=== PATIENT | male | born 1945 | race Caucasian/White ===

== ENCOUNTER 2020-06-01 08:40 | Emergency (ER) | payer MEDICARE, SELFPAY ==
[2020-06-01] VITALS (13 sets, daily range): BP systolic 117–194; BP diastolic 72–108; PULSE 68–91; RESP 16–18; TEMP 36.6; O2SAT 98–100
--- NOTE | ~2020-06-01 | XR_ITS ---
EXAMINATION: XR ribs LT 2V w CXR 2V DATE: 06/01/2020 09:46 INDICATION: Anterior left rib pain post fall TECHNIQUE: PA and lateral views of the chest and 3 views of the left ribs were obtained. COMPARISON: Chest radiograph dated 02/22/18 FINDINGS: Old healed fracture at the anteriormost left 10th rib. No other rib fractures identified. Mild biapic al pleural-parenchymal scarring. Linear discoid atelectasis/scarring at the right lung base. Blunting at the posterior sulcus of one of the lungs on the lateral projection consistent with tiny pleural e ffusion. Subtle approximate 1.5 cm subpleural nodular opacity at the anterior mid to lower lungs on t he lateral projection. No pulmonary edema or pneumothorax. Cardiomediastinal silhouette is normal. Mi ld thoracic and moderate to severe lumbar spondylosis. 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 IMPRESSION: 1. Tiny pleural effusion at the posterior sulci of one of the lungs on the lateral projection, more l ikely on the right. No acute rib fractures identified. 2. Indeterminate 1.5 cm indeterminate nodular opacity at the anterior mid to lower lung zones on the lateral projection. Recommend CT for further evaluation. Reviewed, dictated and finalized at location A. INUOUS MINER OPERATOR IMPRESSION: 1. Tiny pleural effusion at the posterior sulci of one of the lungs on the late ral projection, more likely on the right. No acute rib fractures identified. 2. Indeterminate 1.5 cm indeterminate nodular opacity at the anterior mid to lo wer lung zones on the lateral projection. Recommend CT for further evaluation.
--- NOTE | 2020-06-01 09:20 | ED.FALL ---
HPI - Fall General Chief Complaint: Wound/Laceration <DIA Chen Last Filed: 06/01/20 10:36> Stated Complaint: Fall, Left Side Rib Pain <DIA Chen Last Filed: 06/01/20 10:36> Time Seen by Provider: 06/01/20 09:11 <DIA Chen Last Filed: 06/01/20 10:36> Source: patient <DIA Chen Last Filed: 06/01/20 10:36> Mode of arrival: ambulatory <DIA Chen Last Filed: 06/01/20 10:36> Limitations: no limitations <DIA Chen Last Filed: 06/01/20 10:36> History of Present Illness HPI Narrative: This is a 75 year old male that presents to the ER for left sided rib pain x 5 days. Reports he tripped and fell forward while outside. Reports he landed on a log. Reports since he has has left sided rib pain. Worse with movement and relieved with rest. Denies prodromal symptoms, hitting his head, loss of consciousness, shortness of breath, weakness, or numbness. <DIA Chen Last Filed: 06/01/20 10:36> Related Data Home Medications: Home Medications Medication Instructions Recorded Confirmed apixaban 5 mg tablet 5 mg PO BID 09/16/19 09/25/19 multivit,Ca,min-iron 8 mg-folic tablet PO 09/16/19 09/25/19 acid 200 mcg-lycopene 600 mcg tablet pravastatin 20 mg tablet 20 mg PO DAILY 09/16/19 09/25/19 <DIA Chen Last Filed: 06/01/20 10:36> Allergies/Adverse Reactions: Allergies Allergy/AdvReac Type Severity Reaction Status Date / Time No Known Allergies Allergy Unverified 09/25/19 09:18 <DIA Chen Last Filed: 06/01/20 10:36> Review of Systems Review of Systems: Narrative: CONSTITUTIONAL: Denies fever EYES: Denies visual changes CARDIOVASCULAR: Reports rib pain RESPIRATORY: Denies cough or dyspnea. NEUROLOGIC: Denies headache, numbness, or weakness. <Mikayla Carrizales PA-C - Last Filed: 06/01/20 10:36> All systems reviewed & are unremarkable except as noted in HPI and below <Mikayla Carrizales PA-C - Last Filed: 06/01/20 10:36> PMFSH Past Medical History Medical History: Medical History (Updated 06/01/20 @ 10:34 by Mikayla Carrizales PA-C) Essential hypertension History of stroke with residual deficit Mixed hyperlipidemia <Mikayla Carrizales PA-C - Last Filed: 06/01/20 10:36> Family History Family History: Family History (Updated 12/06/18 @ 15:37 by DOCTOR UNKNOWN) Father Family history of malignant neoplasm Family history of lymphoma Mother Family history of heart disease in male family member before age 55 Family history of cardiovascular disease Sibling Carcinoma of colon Family history of primary malignant neoplasm of liver Other Family history of arthritis <Mikayla Carrizales PA-C - Last Filed: 06/01/20 10:36> Social History Social History: Social History (Updated 09/25/19 @ 09:20 by Mis Dougherty) Smoking packs per day: 0.5 Smoking cigarettes per day: 10.0 Years smoked: 4 Smoking pack-years: 2.00 Smoking status: Former smoker Tobacco type: cigarettes Second hand tobacco smoke exposure: No Smoking end date: 07/30/74 Alcohol intake: never Substance use: never Substance use type: does not use Gender identity (if verbalized by the patient): Male <Mikayla Carrizales PA-C - Last Filed: 06/01/20 10:36> Exam Narrative: Exam Narrative: GENERAL: Well-appearing, well-nourished, and in no acute distress. HEAD: Normocephalic, atraumatic. EYES: PERRLA and EOMI. ENT: Nares clear, no rhinorrhea or epistaxis. Mucous membranes moist. Oropharynx without tonsillar hypertrophy exudate or other lesions. Bilateral TMs pearly rachel non-bulging NECK: Supple. No adenopathy or masses. No midline cervical spine tenderness CHEST: Clear to auscultation. No respiratory distress. No wheezes rales or rhonchi. Tender to palpation of left, lower anterior chest wall HEART: Regular rate and rhythm. No murmur heard. Nor
--- NOTE | 2020-06-01 10:25 | PC.NURSE ---
SERGIO STEPHEN INFORMED THAT RESULTS ARE BACK ON PT, STATES SHE WILL BE LETTING HIM GO HOME, AWAITING D/C PAPERWORK
== END 2020-06-01 10:55 | disposition home or self-care (01) ==
PROVIDERS: Emergency Provider General Practice; PCP Family Medicine
DX: S20.212A Contusion of left front wall of thorax, initial encounter (principal); R91.1 Solitary pulmonary nodule; I69.90 Unspecified sequelae of unspecified cerebrovascular disease; I10 Essential (primary) hypertension; E78.2 Mixed hyperlipidemia; Z87.891 Personal history of nicotine dependence; W01.198A Fall on same level from slipping, tripping and stumbling with subsequent striking against other object, initial encounter
CPT/HCPCS: 71046; 71100; 99283

== ENCOUNTER 2024-08-31 10:29 | Emergency (ER) | payer MEDICARE, SELFPAY ==
--- OUTSIDE RECORDS SUMMARY | 2024-08-31 10:32 | XMS_ITS | Encounter Summary ---
Author Organization [facility] Facility Care Team Providers Care Process Safety Manager Name Role Phone Keven Arias MD Primary Care Provider [phone] Jerry Alexandre MD Primary Care Provider Encounter Details Date Type Department Care Team (Latest Contact Info) Description 09/06/2017 Orders Only [facility] CLINCONV ProviderLai MD [address] [place] [id number] Social History Tobacco Use Types Packs/Day Years Used Date Smoking Tobacco: Never Assessed Sex and Gender Information Value Date Recorded Sex Assigned at Not on file Legal Sex Male 3:00 AM CASINO SURVEILLANCE OFFICER Gender Identity Not on file Sexual Orientation Not on file documented as of this encounter Plan of Treatment Not on file documented as of this encounter Procedures Procedure Name Priority Date/Time Associated Diagnosis Comments SCAN - LABS 09/10/2017 12:00 AM CASINO SURVEILLANCE OFFICER SCAN - LABS 09/10/2017 12:00 AM CASINO SURVEILLANCE OFFICER documented in this encounter Results * SCAN - LABS (09/10/2017 12:00 AM CASINO SURVEILLANCE OFFICER) Narrative 09/10/2017 12:00 AM CASINO SURVEILLANCE OFFICER Ordered by an unspecified provider. Historical Provider Final Res ult * SCAN - LABS (09/10/2017 12:00 AM CASINO SURVEILLANCE OFFICER) Narrative 09/10/2017 12:00 AM CASINO SURVEILLANCE OFFICER Ordered by an unspecified provider. Historical Provider Final Res ult documented in this encounter Visit Diagnoses Not on filedocumented in this encounter Care Teams Process Safety Manager Relationship Specialty Start Date End Date Keven Arias MD PCP - General Family Medicine 10/19/18 11/23/20 Jerry Alexandre MD [address] [place] [phone] PCP - General Family Medicine 11/24/20 documented as of this encounter
--- OUTSIDE RECORDS SUMMARY | 2024-08-31 10:32 | XMS_ITS | Patient Health Summary ---
Author Organization [facility] Address [address] [facility] [place] [address] Care Team Providers Care Slot Ambassador Name Role Phone Donovan Mason MD Primary Care Provider [phone] Note from [facility],non-owned Affiliates and Associated Physician Practices is amultiple site organization consisting of ambulatory clinics and hospital sitesin [place], [place], [place] and [place]. This disclosure is being madepursuant to the Care Everywhere program and may not contain all information available regarding this patient. Last updated 18.[facility] Social History Tobacco Use Types Packs/Day Years Used Date Smoking Tobacco: Never Assessed Sex and Gender Information Value Date Recorded Sex Assigned at Not on file Gender Identity Not on file Sexual Orientation Not on file Procedures * DERMATOPATHOLOGY(Performed 02/18/2020) * DERMATOPATHOLOGY(Performed 07/08/2014) * DERMATOPATHOLOGY(Performed 12/17/2013) * DERMATOPATHOLOGY(Performed 11/25/2013) Results * DERMATOPATHOLOGY (02/18/2020 12:00 AM CDT) Only the most recent of4 resultswithin the time period is included. Case Report Dermatopathology Report ? Case: [id number] ? Authorizing Provider: ??Idania Cervantes MD ? Collected: ? 02/18/2020 12:00 AM ? Ordering Location: ? [facility] ?Received: ?02/19/2020 12:19 PM ? Pathologist: ? Ayleen Lopez MD ? Specimen: ?Skin, right zygoma ? 0 11:34 AM CDT DERMATOPATHOLOGY LABORATORY Final Diagnosis Specimen A. SKIN, right zygoma: ACTINIC KERATOSIS (L57.0) (see microscopic description) 0 11:34 AM T DERMATOPATHOLOGY LABORATORY Clinical History R/O BCC, AK, irregular border, irregular color, irritated. 0 11:34 AM CDT DERMATOPATHOLOGY LABORATORY Gross Description Specimen A: Received is one formalin filled container labeled with the patient's name and designated right zygoma. The specimen consists of a shave measuring [id number]. Jar 0. 0 11:34 AM CDT DERMATOPATHOLOGY LABORATORY Microscopic Description Specimen A. SKIN, right zygoma: There is focal parakeratosis. The lower half of the epidermis shows disorderly maturation of keratinocytes with nuclear pleomorphism. Adnexal extension of the lesion is seen. 0 11:34 AM CDT DERMATOPATHOLOGY LABORATORY Disclaimer An external and internal positive and negative controls are appropriate for the histochemical, immunohistochemical and immunofluorescence stain(s) in this case (if any), except where stated explicitly. The performance characteristics of the stain(s) cited in this report were developed and its performance characteristic determined by the Dermatopathology Laboratory at [facility], directed by Dr. Tigist Galvez. These tests need not be, and therefore are not, approved by the [place] Food and Drug Administration. The tests are used for clinical purposes. Billing Codes Specimen Charges Stain Charges 44971 1 0 11:34 AM CDT DERMATOPATHOLOGY LABORATORY Embedded Images 0 11:34 AM CDT DERMATOPATHOLOGY LABORATORY Pathology/Cytolog y TISSUE SPECIMEN FROM SKIN / Unknown 02/18/2020 02/19/2020 12:19 PM CDT Idania Cervantes MD LAB - PATHOLOGY/CYT OLOGY ORDERABLES DERMATOPATHOLOGY LABORATORY [facility] - Department of Dermatology [facility]/[address] [phone] Care Teams Slot Ambassador Relationship Specialty Start Date End Date Donovan Mason MD [address] [place] [address], [place] [address] PCP - General 11/27/13
--- OUTSIDE RECORDS SUMMARY | 2024-08-31 10:32 | XMS_ITS | Encounter Summary ---
Author Organization [facility] Facility Care Team Providers Care Mine Motor Operator Name Role Phone Keven Arias MD Primary Care Provider [phone] Jerry Alexandre MD Primary Care Provider Encounter Details Date Type Department Care Team (Latest Contact Info) Description 02/22/2018 Orders Only [facility] CLINCONV ProviderLai MD [address] [place] [address] Social History Tobacco Use Types Packs/Day Years Used Date Smoking Tobacco: Never Assessed Sex and Gender Information Value Date Recorded Sex Assigned at Not on file Legal Sex Male 3:00 AM MEDICAL DERMATOLOGIST Gender Identity Not on file Sexual Orientation Not on file documented as of this encounter Plan of Treatment Not on file documented as of this encounter Procedures Procedure Name Priority Date/Time Associated Diagnosis Comments SCAN - LABS 02/25/2018 12:00 AM CDT documented in this encounter Results * SCAN - LABS (02/25/2018 12:00 AM CDT) Narrative 02/25/2018 12:00 AM CDT Ordered by an unspecified provider. Historical Provider Final Res ult documented in this encounter Visit Diagnoses Not on filedocumented in this encounter Care Teams Mine Motor Operator Relationship Specialty Start Date End Date Keven Arias MD PCP - General Family Medicine 10/19/18 11/23/20 Jerry Alexandre MD [address] [facility] [address] [place] [address] PCP - General Family Medicine 11/24/20 documented as of this encounter
--- OUTSIDE RECORDS SUMMARY | 2024-08-31 10:32 | XMS_ITS | Clinical Summary ---
Author Organization [facility] [address] Address [address] [place] [address] Care Team Providers Care Base Manager Name Role Phone Jerry Alexandre MD Primary Care Provider Allergies No known active allergies Medications ocrqdijh-xdm-RP -lycopen-lutein (Centrum Silver) 0.4-300-250 mg-mcg-mcg tablet Rx: Centrum Silver Tablet Active lisinopriL (PRINIVIL,ZESTR IL) 5 mg tablet Take 5 mg by mouth daily 10/18/2020 Active turmeric-turmer ic root extract 450-50 mg capsule 500 mg Active pravastatin (PRAVACHOL) 20 mg tabletIndicatio ns:History of stroke Take 20 mg by mouth daily Active aspirin 81 mg enteric coated tabletIndicatio ns:History of stroke Take 81 mg by mouth daily Active Eliquis 5 mg tabletIndicatio ns:History of stroke,Left carotid artery occlusion Take 1 tablet (5 mg total) by mouth 2 (two) times a day 60 tablet 11 11/24/2020 Active Active Problems Problem Noted Date Diagnosed Date History of stroke Left carotid artery occlusion Surgical History Surgery Date Site/Laterality Comments TOTAL HIP ARTHROPLASTY Left TOTAL HIP ARTHROPLASTY Right Medical History Medical History Date Comments Stroke (HCC) Hypertension High cholesterol Social History Tobacco Use Types Packs/Day Years Used Date Smoking Tobacco: Never Smokeless Tobacco: Never Personal Safety Answer Date Recorded Getting School Help Needed Not on file 09/22 Sex and Gender Information Value Date Recorded Sex Assigned at Not on file Legal Sex Male 3:00 AM HOTEL ENGINEER Gender Identity Not on file Sexual Orientation Not on file Obstetrics History Last Filed Vital Signs Vital Sign Reading Time Taken Comments Blood Pressure 138/78 11/24/2020 10:48 AM CDT Pulse 86 11/24/2020 10:48 AM CDT Temperature - - Respiratory Rate - - Oxygen Saturation 97% 06/17/2018 10:30 AM HOTEL ENGINEER Inhaled Oxygen Concentration - - Weight 70.8 kg (156 lb) 11/24/2020 10:48 AM CDT Height 175.3 cm (5' 9 ) 11/24/2020 10:48 AM CDT Body Mass Index 23.04 11/24/2020 10:48 AM CDT Plan of Treatment Not on file Insurance MEDICARE [facility] Address: [address] [address] [place] [address] [employer] Care Teams Base Manager Relationship Specialty Start Date End Date Jerry Alexandre MD [address] [facility] [address] [place] [address] PCP - General Family Medicine 11/24/20
--- OUTSIDE RECORDS SUMMARY | 2024-08-31 10:32 | XMS_ITS | Clinical Summary ---
Author Organization [facility] Address [address] [facility] [place] [address] Care Team Providers Care Explosive Ordnance Specialist Name Role Phone Donovan Mason MD Primary Care Provider [phone] Source Comments [facility],non-owned Affiliates and Associated Physician Practices is amultiple site organization consisting of ambulatory clinics and hospital sitesin [place], [place], [place] and [place]. This disclosure is being madepursuant to the Care Everywhere program and may not contain all information available regarding this patient. Last updated 18.[facility] [employer] Social History Tobacco Use Types Packs/Day Years Used Date Smoking Tobacco: Never Assessed Sex and Gender Information Value Date Recorded Sex Assigned at Not on file Gender Identity Not on file Sexual Orientation Not on file Plan of Treatment Health Maintenance Due Date Last Done Comments MEDICARE AWV ? 12 MONTHS 1945 DTAP/TDAP/TD VACCINES (1 - Tdap) 1964 PNEUMOCOCCAL VACCINE 50+ (1 of 1 - PCV) 1995 ZOSTER VACCINE (1 of 2) 1995 Respiratory Syncytial Virus (RSV) Vaccine Pt: or over 60 yrs (1 - 1-dose 75+ series) 2020 COVID-19 VACCINE ( - 2023-2 5 season) 2024 INFLUENZA VACCINE (#1) 2024 DEPRESSION SCREENING 07/30/2024 HEPATITIS B VACCINE Aged Out No longe r eligible based on patient's age to complete this topic HIB VACCINE Aged Out No longer eligi ble based on patient's age to complete this topic HPV VACCINE Aged Out No longer eligi ble based on patient's age to complete this topic MENINGOCOCCAL (Group B) VACCINE Aged Out No longer eligible based on patient's age to complete this topic MENINGOCOCCAL VACCINE Aged Out No danette eder eligible based on patient's age to complete this topic Care Teams Explosive Ordnance Specialist Relationship Specialty Start Date End Date Donovan Mason MD [address] [place] [id number] PCP - General 11/27/13
--- OUTSIDE RECORDS SUMMARY | 2024-08-31 10:32 | XMS_ITS | Encounter Summary ---
Author Organization [facility] Address [address] [facility] [place] [address] Care Team Providers Care Account Executive Metalworking Name Role Phone Donovan Mason MD Primary Care Provider [phone] Encounter Details Date Type Department Care Team (Late st Contact Info) Description 02/19/2020 Lab Requisition [facility] [address] [facility] [place] [phone] Idania Cervantes MD [address] [facility] [address] [place] [address] Social History Tobacco Use Types Packs/Day Years Used Date Smoking Tobacco: Never Assessed Sex and Gender Information Value Date Recorded Sex Assigned at Not on file Gender Identity Not on file Sexual Orientation Not on file documented as of this encounter Plan of Treatment Not on file documented as of this encounter Procedures Procedure Name Priority Date/Time Associated Diagnosis Comments DERMATOPATHOLOGY Routine 02/18/2020 12:0 0 AM CDT documented in this encounter Results * DERMATOPATHOLOGY (02/18/2020 12:00 AM CDT) Case Report Dermatopathology Report ? Case: [id number] ? Authorizing Provider: ??Idania Cervantes MD ? Collected: ? 02/18/2020 12:00 AM ? Ordering Location: ? [facility] ?Received: ?02/19/2020 12:19 PM ? Pathologist: ? Ayleen Lopez MD ? Specimen: ?Skin, right zygoma ? 0 11:34 AM T DERMATOPATHOLOGY LABORATORY Final Diagnosis Specimen A. SKIN, right zygoma: ACTINIC KERATOSIS (L57.0) (see microscopic description) 0 11:34 AM T DERMATOPATHOLOGY LABORATORY Clinical History R/O BCC, AK, irregular border, irregular color, irritated. 0 11:34 AM CDT DERMATOPATHOLOGY LABORATORY Gross Description Specimen A: Received is one formalin filled container labeled with the patient's name and designated right zygoma. The specimen consists of a shave measuring [id number]. Jar 0. 0 11:34 AM T DERMATOPATHOLOGY LABORATORY Microscopic Description Specimen A. SKIN, right zygoma: There is focal parakeratosis. The lower half of the epidermis shows disorderly maturation of keratinocytes with nuclear pleomorphism. Adnexal extension of the lesion is seen. 0 11:34 AM T DERMATOPATHOLOGY LABORATORY Disclaimer An external and internal positive and negative controls are appropriate for the histochemical, immunohistochemical and immunofluorescence stain(s) in this case (if any), except where stated explicitly. The performance characteristics of the stain(s) cited in this report were developed and its performance characteristic determined by the Dermatopathology Laboratory at [facility], directed by Dr. Tigist Galvez. These tests need not be, and therefore are not, approved by the [place] Food and Drug Administration. The tests are used for clinical purposes. Billing Codes Specimen Charges Stain Charges 31939 1 0 11:34 AM CDT DERMATOPATHOLOGY LABORATORY Embedded Images 0 11:34 AM CDT DERMATOPATHOLOGY LABORATORY Pathology/Cytolog y TISSUE SPECIMEN FROM SKIN / Unknown 02/18/2020 02/19/2020 12:19 PM CDT Idania Cervantes MD LAB - PATHOLOGY/CYT OLOGY ORDERABLES DERMATOPATHOLOGY LABORATORY [facility] - Department of Dermatology Hospitalist Program Director Center/[address] [phone] documented in this encounter Visit Diagnoses Not on filedocumented in this encounter Care Teams Account Executive Metalworking Relationship Specialty Start Date End Date Donovan Mason MD [address] [place] [address] PCP - General 11/27/13 documented as of this encounter
--- OUTSIDE RECORDS SUMMARY | 2024-08-31 10:32 | XMS_ITS | Referral Summary ---
Author Organization [facility] Address [address] [facility] [place] [address] Care Team Providers Care Group Fitness Manager Name Role Phone Donovan Mason MD Primary Care Provider [phone] Source Comments [facility],non-owned Affiliates and Associated Physician Practices is amultiple site organization consisting of ambulatory clinics and hospital sitesin [place], [place], [place] and [place]. This disclosure is being madepursuant to the Care Everywhere program and may not contain all information available regarding this patient. Last updated 18.[facility] Social History Tobacco Use Types Packs/Day Years Used Date Smoking Tobacco: Never Assessed Sex and Gender Information Value Date Recorded Sex Assigned at Not on file Gender Identity Not on file Sexual Orientation Not on file Plan of Treatment Not on file Care Teams Group Fitness Manager Relationship Specialty Start Date End Date Donovan Mason MD [address] [place] [address] [address] PCP - General 11/27/13
--- OUTSIDE RECORDS SUMMARY | 2024-08-31 10:32 | XMS_ITS | Referral Summary ---
Author Organization [facility] [address] Address [address] [place] [address] Care Team Providers Care Electrical Control Assembler Name Role Phone Jerry Alexandre MD Primary Care Provider Allergies No known active allergies Medications lergpish-sap-OS -lycopen-lutein (Centrum Silver) 0.4-300-250 mg-mcg-mcg tablet Rx: [...] History of stroke Left carotid artery occlusion Social History Tobacco Use Types Packs/Day Years Used Date Smoking Tobacco: Never Smokeless Tobacco: Never Personal Safety Answer Date Recorded Getting School Help Needed Not on file 09/22 Sex and Gender Information Value Date Recorded Sex Assigned at Not on file Legal Sex Male 3:00 AM APPEALS ASSISTANT Gender Identity Not on file Sexual Orientation Not on file Last Filed Vital Signs Vital Sign Reading Time Taken Comments Blood Pressure 138/78 11/24/2020 10:48 AM CDT Pulse 86 11/24/2020 10:48 AM CDT Temperature - - Respiratory Rate - - Oxygen Saturation 97% 06/17/2018 10:30 AM APPEALS ASSISTANT Inhaled Oxygen Concentration - - Weight 70.8 kg (156 lb) 11/24/2020 10:48 AM CDT Height 175.3 cm (5' 9 ) 11/24/2020 10:48 AM CDT Body Mass Index 23.04 11/24/2020 10:48 AM CDT Plan of Treatment Not on file Insurance MEDICARE [employer] GENERIC Care Teams Electrical Control Assembler Relationship Specialty Start Date End Date Jerry Alexandre MD [address] [place] [phone] PCP - General Family Medicine 11/24/20
[2024-08-31 10:47] VITALS: BP 148/90; PULSE 93; RESP 14; TEMP 36.8; O2SAT 98
--- NOTE | 2024-08-31 12:04 | PC.NURSE ---
pt declined to be seen and walked out of ER w/ steady gait
--- OUTSIDE RECORDS SUMMARY | 2024-08-31 12:12 | XMS_ITS | Referral Summary ---
Author Organization [facility] [address] Address [address] [place] [address] Care Team Providers Care Manager Of Manufacturing Name Role Phone Jerry Alexandre MD Primary Care Provider Allergies No known active allergies Medications [id number] -lycopen-lutein (Centrum Silver) 0.4-300-250 mg-mcg-mcg tablet Rx: [...] on file Legal Sex Male 3:00 AM TOWN JUSTICE Gender Identity Not on file Sexual Orientation Not on file Last Filed Vital Signs Vital Sign Reading Time Taken Comments Blood Pressure 138/78 11/24/2020 10:48 AM CDT Pulse 86 11/24/2020 10:48 AM CDT Temperature - - Respiratory Rate - - Oxygen Saturation 97% 06/17/2018 10:30 AM TOWN JUSTICE Inhaled Oxygen Concentration - - Weight 70.8 kg (156 lb) 11/24/2020 10:48 AM CDT Height 175.3 cm (5' 9 ) 11/24/2020 10:48 AM CDT Body Mass Index 23.04 11/24/2020 10:48 AM CDT Plan of Treatment Not on file Insurance MEDICARE [facility] Address: [address] [address] [place] [address] [employer] Care Teams Manager Of Manufacturing Relationship Specialty Start Date End Date Jerry Alexandre MD [address] [place] [id number] PCP - General Family Medicine 11/24/20
--- OUTSIDE RECORDS SUMMARY | 2024-08-31 12:12 | XMS_ITS | Referral Summary ---
Author Organization [facility] Address [address] [facility] [place] [address] Care Team Providers Care Hog Slaughterer Name Role Phone Donovan Mason MD Primary Care Provider [phone] Source Comments [facility],non-owned Affiliates and Associated Physician Practices is amultiple site organization consisting of ambulatory clinics and hospital sitesin [place], [place], [place] and [place]. This disclosure is being madepursuant to the [...] of Treatment Not on file Care Teams Hog Slaughterer Relationship Specialty Start Date End Date Donovan Mason MD [address] [place] [address] [address], [place] [address] PCP - General 11/27/13
--- OUTSIDE RECORDS SUMMARY | 2024-08-31 12:12 | XMS_ITS | Encounter Summary ---
Author Organization [facility] Facility Care Team Providers Care Unix Systems Administrator Name Role Phone Keven Arias MD Primary Care Provider [phone] Jerry Alexandre MD Primary Care Provider Encounter Details Date Type Department Care Team (Latest Contact Info) Description 09/06/2017 Orders Only [facility] CLINCONV ProviderLai MD [address] [place] [address] Social History Tobacco Use Types Packs/Day Years Used Date Smoking Tobacco: Never Assessed Sex and Gender Information Value Date Recorded Sex Assigned at Not on file Legal Sex Male 3:00 AM CORRECTIVE THERAPY AIDE Gender Identity Not on file Sexual Orientation Not on file documented as of this encounter Plan of Treatment Not on file documented as of this encounter Procedures Procedure Name Priority Date/Time Associated Diagnosis Comments SCAN - LABS 09/10/2017 12:00 AM CORRECTIVE THERAPY AIDE SCAN - LABS 09/10/2017 12:00 AM CORRECTIVE THERAPY AIDE documented in this encounter Results * SCAN - LABS (09/10/2017 12:00 AM CORRECTIVE THERAPY AIDE) Narrative 09/10/2017 12:00 AM CORRECTIVE THERAPY AIDE Ordered by an unspecified provider. Historical Provider Final Res ult * SCAN - LABS (09/10/2017 12:00 AM CORRECTIVE THERAPY AIDE) Narrative 09/10/2017 12:00 AM CORRECTIVE THERAPY AIDE Ordered by an unspecified provider. Historical Provider Final Res ult documented in this encounter Visit Diagnoses Not on filedocumented in this encounter Care Teams Unix Systems Administrator Relationship Specialty Start Date End Date Keven Arias MD PCP - General Family Medicine 10/19/18 11/23/20 Jerry Alexandre MD [address] [place] [phone] PCP - General Family Medicine 11/24/20 documented as of this encounter
--- OUTSIDE RECORDS SUMMARY | 2024-08-31 12:12 | XMS_ITS | Clinical Summary ---
Author Organization [facility] [address] Address [address] [place] [address] Care Team Providers Care Trust Evaluation Supervisor Name Role Phone Jerry Alexandre MD Primary Care Provider Allergies No known active allergies Medications [id number] -lycopen-lutein (Centrum Silver) 0.4-300-250 mg-mcg-mcg tablet Rx: [...] on file Legal Sex Male 3:00 AM TITLE LAWYER Gender Identity Not on file Sexual Orientation Not on file Obstetrics History Last Filed Vital Signs Vital Sign Reading Time Taken Comments Blood Pressure 138/78 11/24/2020 10:48 AM CDT Pulse 86 11/24/2020 10:48 AM CDT Temperature - - Respiratory Rate - - Oxygen Saturation 97% 06/17/2018 10:30 AM TITLE LAWYER Inhaled Oxygen Concentration - - Weight 70.8 kg (156 lb) 11/24/2020 10:48 AM CDT Height 175.3 cm (5' 9 ) 11/24/2020 10:48 AM CDT Body Mass Index 23.04 11/24/2020 10:48 AM CDT Plan of Treatment Not on file Insurance MEDICARE [employer] Care Teams Trust Evaluation Supervisor Relationship Specialty Start Date End Date Jerry Alexandre MD [address] [facility] [address] [place] [address] PCP - General Family Medicine 11/24/20
--- OUTSIDE RECORDS SUMMARY | 2024-08-31 12:12 | XMS_ITS | Clinical Summary ---
Author Organization [facility] Address [address] [facility] [place] [place] [address] Care Team Providers Care Cab Station Attendant Name Role Phone Donovan Mason MD Primary Care Provider [phone] Source Comments [facility],non-owned Affiliates and Associated Physician Practices is amultiple site organization consisting of ambulatory clinics and hospital sitesin [place], [place], [place] and [place]. This disclosure is being madepursuant to the Care Everywhere program and may not contain all information available regarding this patient. Last updated 18.[facility] [employer] Social History Tobacco Use Types Packs/Day Years [...] age to complete this topic Care Teams Cab Station Attendant Relationship Specialty Start Date End Date Donovan Mason MD [address] [place] [address] PCP - General 11/27/13
--- OUTSIDE RECORDS SUMMARY | 2024-08-31 12:12 | XMS_ITS | Encounter Summary ---
Author Organization [facility] Facility Care Team Providers Care Neurology Hospitalist Name Role Phone Keven Arias MD Primary Care Provider [phone] Jerry Alexandre MD Primary Care Provider Encounter Details Date Type Department Care Team (Latest Contact Info) Description 02/22/2018 Orders Only [facility] CLINCONV ProviderLai MD [address] [place] [address] Social History Tobacco Use Types Packs/Day Years Used Date Smoking Tobacco: Never Assessed Sex and Gender Information Value Date Recorded Sex Assigned at Not on file Legal Sex Male 3:00 AM RN TESTING Gender Identity Not on file Sexual Orientation [...] on filedocumented in this encounter Care Teams Neurology Hospitalist Relationship Specialty Start Date End Date Keven Arias MD PCP - General Family Medicine 10/19/18 11/23/20 Jerry Alexandre MD [address] [facility] [address] [place] [address] PCP - General Family Medicine 11/24/20 documented as of this encounter
--- OUTSIDE RECORDS SUMMARY | 2024-08-31 12:12 | XMS_ITS | Patient Health Summary ---
Author Organization [facility] Address [address] [facility] [place] [address] Care Team Providers Care Supervisor Line Department Name Role Phone Donovan Mason MD Primary Care Provider [phone] Note from [facility],non-owned Affiliates and Associated Physician Practices is amultiple site organization consisting of ambulatory clinics and hospital sitesin [place], [place], [place] and [place]. This disclosure is being madepursuant to the Care Everywhere program and may not contain all information available regarding this patient. Last updated 18.[facility] Social History Tobacco Use Types Packs/Day [...] included. Case Report Dermatopathology Report ? Case: [id number] ? Authorizing Provider: ??Idania Cervantes MD ? Collected: ? 02/18/2020 12:00 AM ? Ordering Location: ? [facility] Care Derm[facility] Lab ?Received: ?02/19/2020 12:19 PM [...] The specimen consists of a shave measuring [id number]. Jar 0. 0 11:34 AM CDT DERMATOPATHOLOGY [...] characteristic determined by the Dermatopathology Laboratory at [facility], directed by Dr. Tigist Galvez. These tests need not be, and therefore are not, approved by the [place] Food and Drug Administration. The tests are used for clinical purposes. Billing Codes Specimen Charges Stain Charges 75890 1 0 11:34 AM CDT DERMATOPATHOLOGY LABORATORY Embedded Images 0 11:34 AM CDT DERMATOPATHOLOGY LABORATORY Pathology/Cytolog y TISSUE SPECIMEN FROM SKIN / Unknown 02/18/2020 02/19/2020 12:19 PM CDT Idania Cervantes MD LAB - PATHOLOGY/CYT OLOGY ORDERABLES DERMATOPATHOLOGY LABORATORY [facility] - Department of Dermatology [facility]/[address] [phone] Care Teams Supervisor Line Department Relationship Specialty Start Date End Date Donovan Mason MD [address] [place] [address] [address], [place] [address] PCP - General 11/27/13
--- OUTSIDE RECORDS SUMMARY | 2024-08-31 12:12 | XMS_ITS | Encounter Summary ---
Author Organization [facility] Address [address] [facility] [place] [address] Care Team Providers Care Podiatric Assistant Name Role Phone Donovan Mason MD Primary Care Provider [phone] Encounter Details Date Type Department Care Team (Late st Contact Info) Description 02/19/2020 Lab Requisition [facility] [address] [facility] [place] [phone] Idania Cervantes MD [address] [facility] [address] [place] [address] Social History Tobacco Use Types Packs/Day Years [...] CDT) Case Report Dermatopathology Report ? Case: [id number] ? Authorizing Provider: ??Idania Cervantes MD ? [...] The specimen consists of a shave measuring [id number]. Jar 0. 0 11:34 AM T DERMATOPATHOLOGY [...] characteristic determined by the Dermatopathology Laboratory at [facility], directed by Dr. Tigist Galvez. These tests need not be, and therefore are not, approved by the [place] Food and Drug Administration. The tests are used for clinical purposes. Billing Codes Specimen Charges Stain Charges 63959 1 0 11:34 AM CDT DERMATOPATHOLOGY LABORATORY Embedded Images 0 11:34 AM CDT DERMATOPATHOLOGY LABORATORY Pathology/Cytolog y TISSUE SPECIMEN FROM SKIN / Unknown 02/18/2020 02/19/2020 12:19 PM CDT Idania Cervantes MD LAB - PATHOLOGY/CYT OLOGY ORDERABLES DERMATOPATHOLOGY LABORATORY [facility] - Department of Dermatology [facility]/[address] [phone] documented in this encounter Visit Diagnoses Not on filedocumented in this encounter Care Teams Podiatric Assistant Relationship Specialty Start Date End Date Donovan Mason MD [address] [place] [address] PCP - General 11/27/13 documented as of this encounter
== END 2024-08-31 12:25 | disposition left against medical advice (07) ==
LOC: ANHED 12:10
PROVIDERS: PCP Family Medicine
DX: R10.9 Unspecified abdominal pain (principal)
CPT/HCPCS: 99199